=== PATIENT | female | born 1955 | race Caucasian/White ===

== ENCOUNTER 2020-11-02 05:41 | Observation (INO) ==
[2020-09-29 11:10] LABS: Basophils % 0.6 % (0.0-0.8); Eosinophils # 0.1 10*3/uL (0.0-0.87); Eosinophils % 1.6 % (0.00-10.9); Hematocrit 37.9 VOL% (35.7-47.0); Hemoglobin 12.9 GM/DL (12.0-16.0); Immature Granulocytes % 0.4 %; Immature Granulocytes Absolute 0.03 #; Lymphocytes # 2.8 10*3/uL (1.4-4.0); Lymphocytes % 41.5 % (21.3-54.2); Mean Corpuscular Volume 85.4 FL (87-102); Mean Platelet Volume 11.1 FL (9.6-12.0); Monocytes % 7.4 % (1.7-12.7); Neutrophils % 48.5 % (38.7-73.9); Platelet Count 291 T/CUMM (130-400); Red Blood Count 4.44 MC/CUMM (3.8-5.5); Red Cell Distribution Width 12.9 % (9.3-17.3); White Blood Count 6.7 T/CUMM (4-12)
[2020-09-29 11:17] LABS: Bilirubin,Urine Negative (Negative); Blood, Urine Negative (Negative); Glucose,Urine (UA) Negative (Negative); Ketones,Urine Negative (Negative); Mucus,Urine Occasional /LPF (Occasional); Nitrite,Urine Negative (Negative); Protein,Urine Negative; RBC,Urine <1 /HPF (0-4); Squamous Epithelial Cell,Urine Few /HPF (0-10); Urine Appearance CLEAR (Clear); Urine Color Yellow (Yellow); Urine Specific Gravity 1.013 (1.001-1.035); Urine Urobilinogen < 2.0 EU/DL (0.2-1.0); WBC,Urine 1 /HPF (0-6)
[2020-09-29 11:20] LABS: Partial Thromboplastin Time 26.7 SECS (23.9-33.8)
[2020-09-29 11:33] LABS: Albumin 4.4 G/DL (3.4-5.0); Bilirubin,Total 0.7 MG/DL (0.2-1.0); Calcium 9.3 MG/DL (8.5-10.1); Osmolality,Calculated 283.3 MOS/KG (273-304); Total Protein 7.7 G/DL (6.4-8.3)
[2020-10-27 11:24] LABS: Basophils % 0.6 % (0.0-0.8); Eosinophils # 0.1 10*3/uL (0.0-0.87); Eosinophils % 1.5 % (0.00-10.9); Hematocrit 37.5 VOL% (35.7-47.0); Hemoglobin 12.8 GM/DL (12.0-16.0); Immature Granulocytes % 0.3 %; Immature Granulocytes Absolute 0.02 #; Lymphocytes % 44.6 % (21.3-54.2); Mean Corpuscular HGB Conc 34.1 GM/DL (32-36); Mean Corpuscular Volume 84.7 FL (87-102); Mean Platelet Volume 10.6 FL (9.6-12.0); Monocytes % 5.9 % (1.7-12.7); Neutrophils % 47.1 % (38.7-73.9); Platelet Count 312 T/CUMM (130-400); Red Blood Count 4.43 MC/CUMM (3.8-5.5); Red Cell Distribution Width 12.9 % (9.3-17.3); White Blood Count 6.6 T/CUMM (4-12)
[2020-10-27 11:34] LABS: Bilirubin,Urine Negative (Negative); Blood, Urine Negative (Negative); Glucose,Urine (UA) Negative (Negative); Ketones,Urine Negative (Negative); Mucus,Urine Occasional /LPF (Occasional); Nitrite,Urine Negative (Negative); Protein,Urine Negative; RBC,Urine <1 /HPF (0-4); Squamous Epithelial Cell,Urine Occasional /HPF (0-10); Urine Appearance CLEAR (Clear); Urine Color Straw (Yellow); Urine Urobilinogen < 2.0 EU/DL (0.2-1.0); WBC,Urine <1 /HPF (0-6)
[2020-10-27 11:36] LABS: PT Patient Result 10.9 SECS (9.8-11.9); Partial Thromboplastin Time 26.8 SECS (23.9-33.8)
[2020-10-27 12:09] LABS: Calcium 9.1 MG/DL (8.5-10.1); Osmolality,Calculated 285.1 MOS/KG (273-304)
[2020-11-02] MEDS ORDERED: VANCOMYCIN INJ 1,000 MG in SODIUM CHLORIDE 0.9% 250 ML IV ONE (06:00)
[2020-11-02] MEDS ORDERED: CLINDAMYCIN INJ 900 MG in PREMIX 1 EACH IV ONE (06:00)
[2020-11-02] MEDS ORDERED: DEXMEDETOMIDINE 200 MCG/2 ML VIAL ONE (06:29)
[2020-11-02] MEDS ORDERED: MIDAZOLAM 2 MG/2 ML VIAL ONE (06:29)
[2020-11-02] MEDS ORDERED: DEXAMETHASONE 4 MG/1 ML VIAL ONE (06:46)
[2020-11-02] MEDS ORDERED: LIDOCAINE 1% 5 ML VIAL ONE (06:46)
[2020-11-02] MEDS ORDERED: ROPIVACAINE 0.5% 30 ML VIAL ONE (06:46)
[2020-11-02] MEDS ORDERED: LACTATED RINGERS 1,000 ML IV SCH (07:00)
[2020-11-02] MEDS ORDERED: BUPIVACAINE SPINAL 0.75% 2 ML AMP SPINAL ONE (07:03)
[2020-11-02] MEDS ORDERED: propofoL 200 MG/20 ML VIAL IV ONE (07:21)
[2020-11-02] MEDS ORDERED: ONDANSETRON 4 MG/2 ML VIAL ONE ×3 (07:40→09:16)
[2020-11-02] MEDS ORDERED: SEVOFLURANE 1 UNIT/15 MINUTE INH ONE ×4 (07:40→08:01)
[2020-11-02] MEDS ORDERED: TRANEXAMIC ACID 1,000 MG/10 ML VIAL ONE (08:00)
[2020-11-02] MEDS ORDERED: ROCURONIUM 50 MG/5 ML VIAL IV ONE (08:00)
[2020-11-02] MEDS ORDERED: BACITRACIN OINT 0.9 GM PACK TOP ONE (08:08)
[2020-11-02] MEDS ORDERED: LACTATED RINGERS 1,000 ML IV ONE (08:15)
[2020-11-02] MEDS ORDERED: PHENYLEPHRINE 1 MG/10 ML SYRINGE IV ONE (08:16)
[2020-11-02] MEDS ORDERED: GLYCOPYRROLATE 0.4 MG/2 ML VIAL ONE (08:16)
[2020-11-02] MEDS ORDERED: NEOSTIGMINE 10 MG/10 ML VIAL ONE ×4 (08:16)
[2020-11-02] MEDS ORDERED: GLUCAGON 1 MG VIAL IM PRN ×2 (08:26→10:40)
[2020-11-02] MEDS ORDERED: DEXTROSE 50% 25 GM/50 ML VIAL IV PRN ×2 (08:26→10:40)
[2020-11-02] MEDS ORDERED: diphenhydrAMINE CAP 25 MG CAPSULE PO PRN (08:27)
[2020-11-02] MEDS ORDERED: MAGNESIUM HYDROXIDE SUSP 30 ML UDCUP PO PRN (08:27)
[2020-11-02] MEDS ORDERED: ZALEPLON 5 MG CAPSULE PO PRN (08:27)
[2020-11-02] MEDS ORDERED: MORPHINE 4 MG/1 ML VIAL IV PRN ×2 (08:27)
[2020-11-02] MEDS ORDERED: ONDANSETRON 4 MG/2 ML VIAL IV PRN ×2 (08:27→08:38)
[2020-11-02] MEDS ORDERED: HYDROmorphone 2 MG/1 ML VIAL IV PRN (08:38)
[2020-11-02] MEDS ORDERED: PROMETHAZINE INJ 25 MG in SODIUM CHLORIDE 0.9% 50 ML IV PRN (08:38)
[2020-11-02] MEDS ORDERED: MEPERIDINE 25 MG/1 ML VIAL IV PRN (08:38)
[2020-11-02] MEDS ORDERED: diphenhydrAMINE 50 MG/1 ML VIAL IV PRN (08:38)
[2020-11-02] MEDS: KETOROLAC 30 MG/1 ML VIAL IV SCH ×3 (09:15→20:51)
[2020-11-02] MEDS: LACTATED RINGERS 1,000 ML IV SCH ×2 (09:24→20:51)
[2020-11-02] MEDS ORDERED: CLINDAMYCIN INJ 50 ML IV ONE (10:04)
[2020-11-02] MEDS: INSULIN LISPRO 100 UNIT/ML SUBCUT SCH ×3 (11:29→21:03)
[2020-11-02] MEDS: CLINDAMYCIN INJ 900 MG in PREMIX 1 EACH IV SCH ×2 (11:58→20:51)
[2020-11-02] MEDS: DOCUSATE SODIUM 100 MG CAPSULE PO SCH ×2 (14:21→20:49)
[2020-11-02] MEDS: CALCIUM (CITRATE)/VITAMIN D 200 MG-125 UNIT TABLET PO SCH (14:21)
[2020-11-02] MEDS: ASCORBIC ACID 500 MG TABLET PO SCH (14:21)
[2020-11-02] MEDS: metFORMIN 500 MG TABLET PO SCH (20:50)
[2020-11-02] MEDS ORDERED: SIMVASTATIN 20 MG TABLET PO SCH (21:00)
[2020-11-02] MEDS ORDERED: FENOFIBRATE 160 MG TABLET PO SCH (21:00)
[2020-11-03] MEDS: KETOROLAC 30 MG/1 ML VIAL IV SCH (03:32)
[2020-11-03] MEDS: LACTATED RINGERS 1,000 ML IV SCH (04:57)
[2020-11-03] MEDS ORDERED: FONDAPARINUX 2.5 MG/0.5 ML SYRINGE SUBCUT SCH (05:00)
[2020-11-03 05:44] LABS: Eosinophils % 0.1 % (0.00-10.9); Hematocrit 30.2 VOL% (35.7-47.0); Hemoglobin 9.8 GM/DL (12.0-16.0); Immature Granulocytes % 0.3 %; Immature Granulocytes Absolute 0.02 #; Lymphocytes # 1.9 10*3/uL (1.4-4.0); Lymphocytes % 24.6 % (21.3-54.2); Mean Corpuscular HGB Conc 32.5 GM/DL (32-36); Mean Corpuscular Volume 89.6 FL (87-102); Mean Platelet Volume 10.8 FL (9.6-12.0); Monocytes % 10.4 % (1.7-12.7); Neutrophils % 64.6 % (38.7-73.9); Platelet Count 220 T/CUMM (130-400); Red Blood Count 3.37 MC/CUMM (3.8-5.5); Red Cell Distribution Width 13.2 % (9.3-17.3); White Blood Count 7.9 T/CUMM (4-12)
[2020-11-03 06:03] LABS: Calcium 8.4 MG/DL (8.5-10.1); Osmolality,Calculated 286.1 MOS/KG (273-304)
[2020-11-03] MEDS: INSULIN LISPRO 100 UNIT/ML SUBCUT SCH ×2 (08:08→11:37)
[2020-11-03] MEDS ORDERED: PANTOPRAZOLE 40 MG TABLET PO SCH (09:00)
[2020-11-03] MEDS ORDERED: MAGNESIUM GLUCONATE 500 MG TABLET PO SCH (09:00)
[2020-11-03] MEDS ORDERED: MULTIVITAMIN (CENTRUM) TABLET PO SCH (09:00)
[2020-11-03] MEDS: ASCORBIC ACID 500 MG TABLET PO SCH (09:54)
[2020-11-03] MEDS: DOCUSATE SODIUM 100 MG CAPSULE PO SCH (09:55)
[2020-11-03] MEDS: metFORMIN 500 MG TABLET PO SCH (09:55)
[2020-11-03] MEDS: CALCIUM (CITRATE)/VITAMIN D 200 MG-125 UNIT TABLET PO SCH (09:55)
[2020-11-03 12:11] VITALS: BP 180/72
[2020-11-03] MEDS ORDERED: LOSARTAN 25 MG TABLET PO SCH (21:00)
== END 2020-11-03 15:04 | disposition home health service (06) ==
LOC: N.OR 05:41 → N.SDSINP 05:44 → INTOOBSV 08:27 → N.3E 14:16
PROVIDERS: ADMIT Orthopaedic Surgery; ATTEND Orthopaedic Surgery